=== PATIENT | male | born 1955 | race African-American/Black ===

== ENCOUNTER 2019-04-23 17:15 | Inpatient (IN) ==
[2019-04-23] MEDS ORDERED: ASPIRIN 325 MG TABLET PO STA (17:32)
[2019-04-23] MEDS ORDERED: SODIUM CHLORIDE 0.9% 1,000 ML IV STA (17:32)
[2019-04-23] MEDS ORDERED: METOPROLOL TARTRATE 5 MG/5 ML VIAL IV STA ×2 (17:33→17:56)
[2019-04-23 17:46] LABS: Basophils # 0.1 10*3/uL (0.0-0.2); Basophils % 0.6 % (0.0-0.8); Eosinophils % 0.1 % (0.00-10.9); Hematocrit 49.6 VOL% (42.0-52.0); Hemoglobin 16.5 GM/DL (14.0-18.0); Immature Granulocytes % 0.3 %; Immature Granulocytes Absolute 0.03 #; Lymphocytes # 3.4 10*3/uL (1.4-4.0); Lymphocytes % 32.1 % (21.2-54.2); Mean Corpuscular HGB Conc 33.3 GM/DL (32-36); Mean Corpuscular Volume 87.9 FL (87-102); Mean Platelet Volume 12.3 FL (9.6-12.0); Neutrophils % 60.9 % (38.7-73.9); Platelet Count 163 T/CUMM (130-400); Red Blood Count 5.64 MC/CUMM (3.8-5.5); Red Cell Distribution Width 14.6 % (9.3-17.3); White Blood Count 10.4 T/CUMM (4-12)
[2019-04-23 18:15] LABS: Alanine Aminotransferase 19 U/L (16-61); Albumin 4.2 G/DL (3.4-5.0); Alkaline Phosphatase 95 U/L (45-117); Aspartate Amino Transferase 15 U/L (0-37); Blood Urea Nitrogen 17 MG/DL (7-18); Calcium 9.2 MG/DL (8.5-10.1); Glucose 108 MG/DL (74-106); Osmolality,Calculated 281.4 MOS/KG (273-304); Total Protein 8.8 G/DL (6.4-8.3)
[2019-04-23 18:16] LABS: Troponin I 0.094 NG/ML (0.00-0.045)
[2019-04-23] MEDS ORDERED: ONDANSETRON 4 MG/2 ML VIAL IV PRN (19:04)
[2019-04-23] MEDS ORDERED: ACETAMINOPHEN 325 MG TABLET PO PRN (19:20)
[2019-04-23] MEDS ORDERED: NITROGLYCERIN SL 0.4 MG TABLET SL PRN (19:20)
[2019-04-23] MEDS ORDERED: SODIUM CHLORIDE 0.9% 1,000 ML IV SCH (19:30)
[2019-04-23] MEDS ORDERED: POTASSIUM CHLORIDE 20 MEQ TABLET PO ONE (19:45)
[2019-04-23] MEDS: METOPROLOL TARTRATE 50 MG TABLET PO SCH (21:20)
[2019-04-23] MEDS: ENOXAPARIN 100 MG/ML SYRINGE SUBCUT SCH (21:22)
[2019-04-23 21:32] LABS: Apearance,Urine Slightly Hazy (Clear); Bilirubin,Urine Negative (Negative); Blood, Urine Small mg/dL (Negative); Glucose,Urine (UA) Negative (Negative); Hyaline Casts,Urine 37 /LPF (0-3); Ketones,Urine 5 mg/dL (Negative); Mucus,Urine Many /LPF (Occasional); Nitrite,Urine Negative (Negative); Protein,Urine 100 MG/DL; RBC,Urine 3 /HPF (0-4); Urine Color Amber (Yellow); Urine Specific Gravity 1.025 (1.001-1.035); WBC,Urine 2 /HPF (0-6)
[2019-04-23 23:08] LABS: Troponin I 0.102 NG/ML (0.00-0.045)
[2019-04-24 04:46] LABS: Basophils % 0.4 % (0.0-0.8); Eosinophils % 0.4 % (0.00-10.9); Hematocrit 41.6 VOL% (42.0-52.0); Hemoglobin 14.1 GM/DL (14.0-18.0); Immature Granulocytes % 0.2 %; Immature Granulocytes Absolute 0.02 #; Lymphocytes % 36.6 % (21.2-54.2); Mean Corpuscular HGB Conc 33.9 GM/DL (32-36); Mean Corpuscular Volume 87.4 FL (87-102); Neutrophils % 55.4 % (38.7-73.9); Platelet Count 135 T/CUMM (130-400); Red Blood Count 4.76 MC/CUMM (3.8-5.5); Red Cell Distribution Width 14.7 % (9.3-17.3); White Blood Count 8.1 T/CUMM (4-12)
[2019-04-24 05:15] LABS: Troponin I 0.091 NG/ML (0.00-0.045)
[2019-04-24 05:24] LABS: Albumin 3.6 G/DL (3.4-5.0); Bilirubin,Total 1.1 MG/DL (0.2-1.0); Calcium 8.4 MG/DL (8.5-10.1); Risk Ratio 4.07; Thyroid Stimulating Hormone 1.57 uIU/ml (0.358-3.74); Total Protein 7.4 G/DL (6.4-8.3)
[2019-04-24] MEDS: ENOXAPARIN 100 MG/ML SYRINGE SUBCUT SCH (09:07)
[2019-04-24] MEDS: METOPROLOL TARTRATE 50 MG TABLET PO SCH ×2 (09:07→21:29)
[2019-04-24] MEDS: ASPIRIN EC 81 MG TABLET PO SCH (09:07)
[2019-04-24] MEDS: PANTOPRAZOLE 40 MG TABLET PO SCH (09:07)
[2019-04-24] MEDS: hydrALAZINE 20 MG/1 ML VIAL IV PRN ×2 (11:56→17:14)
[2019-04-24] MEDS ORDERED: ATORVASTATIN 40 MG TABLET PO SCH (21:00)
[2019-04-24] MEDS: LOSARTAN 25 MG TABLET PO SCH (21:29)
[2019-04-25] MEDS: METOPROLOL TARTRATE 50 MG TABLET PO SCH (09:23)
[2019-04-25] MEDS: ASPIRIN EC 81 MG TABLET PO SCH (09:23)
[2019-04-25] MEDS: PANTOPRAZOLE 40 MG TABLET PO SCH (09:23)
[2019-04-25] MEDS: LOSARTAN 25 MG TABLET PO SCH (09:23)
[2019-04-25 12:16] VITALS: BP 144/70
== END 2019-04-25 17:58 | disposition home or self-care (01) | DRG 309 ==
LOC: N.ED 17:15 → N.EDINP 19:04 → SUATTDRO 19:04 → N.TELES 04-24 00:16
PROVIDERS: ADMIT Internal Medicine; ATTEND Internal Medicine

== ENCOUNTER 2021-01-14 09:16 | Observation (INO) ==
[2021-01-14] MEDS ORDERED: METOPROLOL TARTRATE 5 MG/5 ML VIAL IV STA (09:25)
[2021-01-14 10:00] LABS: Basophils % 0.3 % (0.0-0.8); Eosinophils % 0.2 % (0.00-10.9); Hematocrit 39.2 VOL% (42.0-52.0); Hemoglobin 13.3 GM/DL (14.0-18.0); Immature Granulocytes % 0.4 %; Immature Granulocytes Absolute 0.04 #; Lymphocytes # 1.7 10*3/uL (1.4-4.0); Lymphocytes % 17.7 % (21.2-54.2); Mean Corpuscular HGB Conc 33.9 GM/DL (32-36); Mean Corpuscular Volume 88.7 FL (87-102); Mean Platelet Volume 11.9 FL (9.6-12.0); Monocytes % 7.8 % (1.7-12.7); Neutrophils % 73.6 % (38.7-73.9); Platelet Count 144 T/CUMM (130-400); Red Blood Count 4.42 MC/CUMM (3.8-5.5); Red Cell Distribution Width 14.5 % (9.3-17.3); White Blood Count 9.4 T/CUMM (4-12)
[2021-01-14 10:19] LABS: PT Patient Result 10.9 SECS (9.8-11.9); Partial Thromboplastin Time 26.8 SECS (23.9-33.8)
[2021-01-14 10:30] LABS: Albumin 3.4 G/DL (3.4-5.0); Bilirubin,Total 0.6 MG/DL (0.2-1.0); Calcium 8.4 MG/DL (8.5-10.1); Osmolality,Calculated 279.4 MOS/KG (273-304); Potassium 3.5 MMOL/L (3.5-5.1); Thyroid Stimulating Hormone 2.92 uIU/ml (0.358-3.74); Total Protein 7.5 G/DL (6.4-8.3)
[2021-01-14 10:51] LABS: Platelet Estimate Adequate
[2021-01-14] MEDS ORDERED: DEXTROSE 50% 25 GM/50 ML VIAL IV PRN (11:54)
[2021-01-14] MEDS ORDERED: GLUCAGON 1 MG VIAL IM PRN (11:54)
[2021-01-14] MEDS ORDERED: ONDANSETRON 4 MG/2 ML VIAL IV PRN (11:54)
[2021-01-14] MEDS ORDERED: ACETAMINOPHEN 325 MG TABLET PO PRN (11:54)
[2021-01-14] MEDS ORDERED: ENOXAPARIN 40 MG/0.4 ML SYRINGE SUBCUT SCH (12:00)
[2021-01-14 12:09] LABS: Barbiturates Screen,Urine Negative (Negative); Benzodiazepines Screen,Urine Negative (Negative); Cannabinoid Screen,Urine Negative (Negative); Opiate Screen,Urine Negative (Negative); Phencyclidine Screen,Urine Negative (Negative)
[2021-01-14] MEDS: carvediloL 6.25 MG TABLET PO SCH ×2 (14:55→21:06)
[2021-01-14] MEDS: ASPIRIN EC 81 MG TABLET PO SCH (14:55)
[2021-01-14] MEDS: SODIUM CHLORIDE 0.9% 1,000 ML IV SCH (16:31)
[2021-01-14] MEDS: hydrALAZINE 20 MG/1 ML VIAL IV PRN (17:00)
[2021-01-14] MEDS ORDERED: POTASSIUM CHLORIDE 20 MEQ/15 ML UDCUP PO ONE (21:14)
[2021-01-15 04:38] LABS: Basophils % 0.4 % (0.0-0.8); Eosinophils # 0.1 10*3/uL (0.0-0.87); Eosinophils % 1.3 % (0.00-10.9); Hematocrit 38.9 VOL% (42.0-52.0); Immature Granulocytes % 0.3 %; Immature Granulocytes Absolute 0.02 #; Lymphocytes # 2.4 10*3/uL (1.4-4.0); Lymphocytes % 34.6 % (21.2-54.2); Mean Corpuscular HGB Conc 33.4 GM/DL (32-36); Mean Corpuscular Volume 88.2 FL (87-102); Mean Platelet Volume 12.5 FL (9.6-12.0); Monocytes % 9.7 % (1.7-12.7); Neutrophils % 53.7 % (38.7-73.9); Platelet Count 132 T/CUMM (130-400); Red Blood Count 4.41 MC/CUMM (3.8-5.5); Red Cell Distribution Width 14.7 % (9.3-17.3); White Blood Count 6.9 T/CUMM (4-12)
[2021-01-15 04:57] LABS: Bilirubin,Total 0.9 MG/DL (0.2-1.0); Calcium 8.5 MG/DL (8.5-10.1); Osmolality,Calculated 280.3 MOS/KG (273-304); Potassium 3.8 MMOL/L (3.5-5.1); Risk Ratio 3.05; Total Protein 7.2 G/DL (6.4-8.3); VLDL CHOLESTEROL 16.8 MG/DL
[2021-01-15] MEDS: hydrALAZINE 20 MG/1 ML VIAL IV PRN (07:27)
[2021-01-15] MEDS: SODIUM CHLORIDE 0.9% 1,000 ML IV SCH (07:27)
[2021-01-15] MEDS ORDERED: lisinopriL 10 MG TABLET PO SCH (09:00)
[2021-01-15] MEDS ORDERED: carvediloL 12.5 MG TABLET PO SCH (09:09)
[2021-01-15] MEDS ORDERED: APIXABAN 5 MG TABLET PO SCH (09:30)
[2021-01-15] MEDS: ASPIRIN EC 81 MG TABLET PO SCH (09:42)
[2021-01-15] MEDS: carvediloL 6.25 MG TABLET PO SCH (09:43)
[2021-01-15 12:02] VITALS: BP 152/83
== END 2021-01-15 15:24 | disposition home or self-care (01) ==
LOC: EDUNIT# → EDBD → N.ED 09:16 → N.EDINP 09:16 → N.TELES 15:17
PROVIDERS: ADMIT Emergency Medicine; ATTEND Emergency Medicine

== ENCOUNTER 2021-08-23 23:01 | Inpatient (IN) ==
[2021-08-23] MEDS ORDERED: ONDANSETRON 4 MG/2 ML VIAL IV STA (23:31)
[2021-08-23] MEDS ORDERED: ASPIRIN 325 MG TABLET PO STA (23:31)
[2021-08-23] MEDS ORDERED: PANTOPRAZOLE 40 MG VIAL IV STA (23:33)
[2021-08-23] MEDS ORDERED: METOPROLOL TARTRATE 5 MG/5 ML VIAL IV STA (23:38)
[2021-08-23 23:42] LABS: Basophils # 0.1 10*3/uL (0.0-0.2); Basophils % 0.6 % (0.0-0.8); Eosinophils # 0.1 10*3/uL (0.0-0.87); Eosinophils % 1.3 % (0.00-10.9); Hematocrit 39.3 VOL% (42.0-52.0); Hemoglobin 13.5 GM/DL (14.0-18.0); Immature Granulocytes % 0.2 %; Immature Granulocytes Absolute 0.02 #; Lymphocytes # 2.8 10*3/uL (1.4-4.0); Lymphocytes % 31.3 % (21.2-54.2); Mean Corpuscular HGB Conc 34.4 GM/DL (32-36); Mean Corpuscular Volume 89.3 FL (87-102); Mean Platelet Volume 11.8 FL (9.6-12.0); Neutrophils % 58.6 % (38.7-73.9); Platelet Count 157 T/CUMM (130-400); Red Cell Distribution Width 14.6 % (9.3-17.3); White Blood Count 8.8 T/CUMM (4-12)
[2021-08-24 00:03] LABS: Albumin 3.4 G/DL (3.4-5.0); Bilirubin,Total 0.6 MG/DL (0.20-1.00); Calcium 8.6 MG/DL (8.5-10.1); Osmolality,Calculated 279.5 MOS/KG (273-304); Potassium 3.4 MMOL/L (3.5-5.1); Total Protein 7.5 G/DL (6.4-8.2)
[2021-08-24 00:17] LABS: INR 1.2; PT Patient Result 12.7 SECS (10.5-12.0)
[2021-08-24] MEDS ORDERED: MORPHINE 2 MG/1 ML SYRINGE IV PRN (01:16)
[2021-08-24] MEDS ORDERED: GLUCAGON 1 MG VIAL IM PRN (01:16)
[2021-08-24] MEDS ORDERED: DEXTROSE 50% 25 GM/50 ML VIAL IV PRN (01:16)
[2021-08-24] MEDS ORDERED: ACETAMINOPHEN 325 MG TABLET PO PRN (01:16)
[2021-08-24] MEDS ORDERED: ONDANSETRON 4 MG/2 ML VIAL IV PRN (01:16)
[2021-08-24 05:58] LABS: Basophils % 0.4 % (0.0-0.8); Eosinophils # 0.1 10*3/uL (0.0-0.87); Eosinophils % 1.9 % (0.00-10.9); Hematocrit 38.9 VOL% (42.0-52.0); Hemoglobin 13.1 GM/DL (14.0-18.0); Immature Granulocytes % 0.4 %; Immature Granulocytes Absolute 0.03 #; Lymphocytes # 2.1 10*3/uL (1.4-4.0); Lymphocytes % 28.7 % (21.2-54.2); Mean Corpuscular HGB Conc 33.7 GM/DL (32-36); Mean Corpuscular Volume 90.7 FL (87-102); Mean Platelet Volume 11.7 FL (9.6-12.0); Monocytes % 12.2 % (1.7-12.7); Neutrophils % 56.4 % (38.7-73.9); Platelet Count 143 T/CUMM (130-400); Red Blood Count 4.29 MC/CUMM (3.8-5.5); Red Cell Distribution Width 14.6 % (9.3-17.3); White Blood Count 7.2 T/CUMM (4-12)
[2021-08-24 06:44] LABS: Calcium 8.8 MG/DL (8.5-10.1); Osmolality,Calculated 284.1 MOS/KG (273-304); Potassium 4.6 MMOL/L (3.5-5.1)
[2021-08-24] MEDS: RIVAROXABAN 20 MG TABLET PO SCH (11:14)
[2021-08-24] MEDS: lisinopriL 10 MG TABLET PO SCH ×2 (11:23→11:58)
[2021-08-24] MEDS: METOPROLOL SUCCINATE XL 50 MG TABLET PO SCH (11:23)
[2021-08-24] MEDS: ASPIRIN EC 81 MG TABLET PO SCH (11:34)
[2021-08-24] MEDS: PANTOPRAZOLE 40 MG TABLET PO SCH (11:34)
[2021-08-24] MEDS: SPIRONOLACTONE 25 MG TABLET PO SCH ×2 (11:35→11:58)
[2021-08-24] MEDS ORDERED: POTASSIUM CHLORIDE 20 MEQ TABLET PO ONE (12:22)
[2021-08-24] MEDS ORDERED: hydrALAZINE 20 MG/1 ML VIAL IV PRN (17:24)
[2021-08-24] MEDS: ASCORBIC ACID 500 MG TABLET PO SCH (20:45)
[2021-08-25] MEDS: ASCORBIC ACID 500 MG TABLET PO SCH (09:18)
[2021-08-25] MEDS: lisinopriL 10 MG TABLET PO SCH (09:18)
[2021-08-25] MEDS: METOPROLOL SUCCINATE XL 50 MG TABLET PO SCH (09:18)
[2021-08-25] MEDS: RIVAROXABAN 20 MG TABLET PO SCH (09:18)
[2021-08-25] MEDS: ASPIRIN EC 81 MG TABLET PO SCH (09:18)
[2021-08-25] MEDS: SPIRONOLACTONE 25 MG TABLET PO SCH (09:19)
[2021-08-25] MEDS: PANTOPRAZOLE 40 MG TABLET PO SCH (09:19)
[2021-08-25 11:50] VITALS: BP 159/86
== END 2021-08-25 12:10 | disposition home or self-care (01) | DRG 309 ==
LOC: EDUNIT# → EDBD → N.ED 23:01 → N.EDINP 08-24 01:16 → N.TELEN 08-24 03:44
PROVIDERS: ADMIT Internal Medicine; ATTEND Internal Medicine